=== PATIENT | female | born 1950 | race American Indian/Alaskan Native ===

== ENCOUNTER 2018-03-02 09:30 | Outpatient (CLI) | payer OTHER ==
--- NOTE | 2018-03-02 19:49 | Magnetic Resonance Report ---
FINAL REPORT EXAM: MR LUMBAR SPINE WO CON HISTORY: ADJACENT SEGMENT DISEASE WITH SPINAL STENOSIS TECHNIQUE: MRI lumbar spine without contrast PRIORS: None. FINDINGS: Distal cord and conus demonstrate normal signal intensity morphology At T12-L1 there is a small focal broad-based left paracentral disc herniation of the protrusion type with some deformity of the anterior thecal sac. The neural foramina are within normal limits. There is mild facet joint arthropathy with mild central canal stenosis At L1-L2 no focal disc herniation or bulge there is some degenerative loss of signal and loss of height of the disc. There is mild facet joint arthropathy with minimal central canal stenosis no evidence for neural foraminal stenosis. At L2-L3 no focal disc herniation or bulge. There are facet joint hypertrophic degenerative changes no significant canal or foraminal stenosis. At L3-L4 there is mild broad-based bulging of the disc. There is moderate facet joint her per trophy with hypertrophy of the ligamentum flavum resulting in mild central canal stenosis there is mild to moderate bilateral neural foraminal stenosis Posterior fusion with laminectomy at L4-L5 there is disc spacer present. The thecal sac is decompressed. No focal disc herniation observed At L5-S1 no focal disc herniation no evidence for canal or foraminal stenosis. IMPRESSION: Status post lumbar fusion and laminectomy at L4-5 with decompression of the thecal sac Multilevel degenerative disc changes. Small focal disc protrusion at T12-L1. Facet joint arthropathy and degenerative disc changes resulting in [id number] canal and foraminal stenosis at L3-L4
== END 2018-03-02 09:31 | disposition home or self-care (01) ==
LOC: MRI 09:30
PROVIDERS: ATTEND Neurological Surgery
DX: M48.061 Spinal stenosis, lumbar region without neurogenic claudication (principal); M51.24 Other intervertebral disc displacement, thoracic region; M47.896 Other spondylosis, lumbar region; M51.26 Other intervertebral disc displacement, lumbar region; M51.36 Other intervertebral disc degeneration, lumbar region; M12.88 Other specific arthropathies, not elsewhere classified, other specified site; Z98.890 Other specified postprocedural states
CPT/HCPCS: 72148